=== PATIENT | male | born 1970 | race Caucasian/White ===

== ENCOUNTER 2021-11-11 06:35 | Emergency (ER) | payer MEDICARE ==
[2021-11-11] MEDS ORDERED: LORazepam 1 MG TAB PO STA ×2 (07:02→08:31)
[2021-11-11 08:22] LABS: Amphetamine Screen,Urine Not Detected (NotDetected); Barbiturate Screen,Urine Not Detected (NotDetected); Benzodiazepines Screen,Urine Detected (NotDetected); Cocaine Screen,Urine Not Detected (NotDetected); Methadone Screen, Urine Not Detected (NotDetected); Opiate Screen,Urine Detected (NotDetected); Oxycodone Screen, Urine Not Detected (NotDetected); Phencyclidine Screen,Urine Not Detected (NotDetected); Tricyclic Antidepressant,Urine Not Detected (NotDetected); Urn Cannabinoid Scrn Not Detected (NotDetected)
--- NOTE | 2021-11-11 08:52 | ED ---
General Adult HPI - General Chief complaint: Psychiatric Symptoms Stated complaint: Mental Health Time Seen by Provider: 11/11/21 08:09 Source: patient, RN notes reviewed, old records reviewed Mode of arrival: ambulatory Limitations: no limitations - History of Present Illness Initial comments: Patient is a 50-year-old male with past medical history remarkable for hypertension, chronic back pain, GERD, depression and anxiety presents emergency Department complaining of worsening debilitating depression and anxiety. States she has been having panic attacks at home. Is on Xanax at home. Within the last year has lost both of his pets, as well as his father for whom he was the primary caregiver. [place], [place] now regrets that as he is no longer family. CT is lack of appetite, can't sleep, feels like his depression and anxiety is worsening. Is seeking psychiatric evaluation. States he no longer feels like living but denies any suicidal ideations, attempts, plans. Denies any homicidal ideations, attempts, plans. Denies any visual or auditory hallucinations. Denies alcohol use or drug use. His no other acute complaints at this time. - Related Data Home Medications Medication Instructions Recorded Confirmed ALPRAZolam [Xanax] 0.25 mg PO BID PRN 11/11/21 11/11/21 Atorvastatin [Lipitor] 20 mg PO HS 11/11/21 11/11/21 Diltiazem HCl [Cardizem CD] 360 mg PO HS 11/11/21 11/11/21 Docusate [Colace] 100 mg PO HS PRN 11/11/21 11/11/21 Fenofibrate Nanocrystallized 145 mg PO HS 11/11/21 11/11/21 [Tricor] HYDROcodone/APAP 10-325MG [[place] 1 tab PO DAILY PRN 11/11/21 11/11/21 10-325] Methocarbamol [Robaxin-750] 750 mg PO DAILY PRN 11/11/21 11/11/21 Olmesartan Medoxomil 20 mg PO HS 11/11/21 11/11/21 Omeprazole 20 mg PO HS 11/11/21 11/11/21 Tadalafil [Cialis] 5 mg PO HS 11/11/21 11/11/21 Venlafaxine HCl [Effexor XR] 150 mg PO HS 11/11/21 11/11/21 Zolpidem [Ambien] 5 mg PO HS PRN 11/11/21 11/11/21 buPROPion XL [Wellbutrin XL] 150 mg PO HS 11/11/21 11/11/21 Allergies Allergy/AdvReac Type Severity Reaction Status Date / Time doxycycline Allergy Rash/Hives Verified 11/11/21 09:53 metronidazole [From Flagyl] Allergy Rash/Hives Verified 11/11/21 09:53 sulfamethoxazole Allergy Rash/Hives Verified 11/11/21 09:53 [From Bactrim] tetracycline Allergy Rash/Hives Verified 11/11/21 09:53 trimethoprim [From Bactrim] Allergy Rash/Hives Verified 11/11/21 09:53 Review of Systems ROS Statement: Those systems with pertinent positive or pertinent negative responses have been documented in the HPI. Review of Systems: CONST: Denies fever EYES: Denies blurry vision ENT: Denies nasal congestion C/V: Denies Chest pain RESP: Denies shortness of breath GI: Denies abdominal pain : Denies dysuria SKIN: Denies rash. MSK: Denies joint pain. NEURO: Denies headache PSYCH: Denies suicidal and homicidal ideations/plans/attempts. Denies visual or auditory hallucinations. He endorses severe anxiety and depression ROS Other: All systems not noted in ROS Statement are negative. Past Medical History Past Medical History: GERD/Reflux, Hyperlipidemia, Hypertension Additional Past Medical History / Comment(s): chronic back pain History of Any Multi-Drug Resistant Organisms: None Reported Additional Past Surgical History / Comment(s): sternal repain, varicose vein sx, R rotator Past Psychological History: Anxiety, Depression Smoking Status: Current some day smoker Past Alcohol Use History: Occasional Past Drug Use History: None Reported General Exam - General Exam Comments Initial Comments: General: Appears extremely anxious HEAD: Normal with no signs of head trauma. EYES: PERRLA, EOMI, conjunctiva normal, no discharge. Pupils are 3 mm and equal bilaterally ENT: Hearing grossly intact, normal oropharynx. RESPIRATORY: Clear breath sounds bilaterally. No wheezes, rales, or rhonchi. C/V: Regular rate and rhythm. S1 and S2 auscultated, no edema, peripheral pulses 2+ and intact throughout ABD: Abd is soft, nontender, nondistended EXT: Normal range of motion, no obvious deformity SKIN: No rashes or lesions observed on exposed skin. NEURO: Alert and oriented x 4. Cranial nerves II-XII intact. No focal sensory or strength deficits. Limitations: no limitations Course Vital Signs 11/11/21 11/11/21 06:50 10:59 Temperature 98 F 98.1 F Pulse Rate 107 H 85 Respiratory 18 14 Rate Blood Pressure 134/86 132/92 O2 Sat by Pulse 98 98 Oximetry Medical Decision Making - Medical Decision Making Based on the patient's presentation and physical exam, I do believe he requires psychiatric evaluation. BAT is 0. UDS is pending at this time. Do not believe that he has further imaging and laboratory studies at this time. He will be given Ativan for his anxiety. Patient was in agreement this plan.UDS is positive for opiates as well as benzodiazepines. At this time patient is medically cleared for evaluation by EPS. There were contacted for psychiatric evaluation. Disposition is pending psychiatric evaluation. Psych evaluated the patient. He is going to sign himself in for inpatient psychiatry. Patient was therefore admitted in stable condition to inpatient psych. - Lab Data Lab Results 11/11/21 Range/Units 07:49 Urine Opiates Screen Detected H (NotDetected) Ur Oxycodone Screen Not Detected (NotDetected) Urine Methadone Screen Not Detected (NotDetected) Ur Propoxyphene Screen Not Detected (NotDetected) Ur Barbiturates Screen Not Detected (NotDetected) U Tricyclic Antidepress Not Detected (NotDetected) Ur Phencyclidine Scrn Not Detected (NotDetected) Ur Amphetamines Screen Not Detected (NotDetected) U Methamphetamines Scrn Not Detected (NotDetected) U Benzodiazepines Scrn Detected H (NotDetected) Urine Cocaine Screen Not Detected (NotDetected) U Marijuana (THC) Screen Not Detected (NotDetected) Disposition Clinical Impression: Acute anxiety, Encounter for psychiatric assessment, Depression Disposition: ADMITTED IP TO THIS HOSP Condition: Stable Referrals: Nonstaff,Physician [Primary Care Provider] - 1-2 days
[2021-11-11 14:08] VITALS: BP 145/98; PULSE 109; RESP 20; TEMP 98
--- NOTE | 2021-11-11 22:47 | P.EN ---
It was recommended that patient be admitted to [facility]. ER staff was informed that he cannot leave AMA. However, family came to the unit, and patient left with family. Although patient would benefit from psychiatric hospitalization, at this time, he does not require a petition with pickup order as he is not suicidal, homicidal, floridly psychotic, or floridly manic, and he is with family.
== END 2021-11-11 15:10 | disposition other institution (70) ==
LOC: EC 06:35 → 3MHU 15:06 → UNDOADMIN 15:06
DX: Z04.6 Encounter for general psychiatric examination, requested by authority (principal); F99 Mental disorder, not otherwise specified; I10 Essential (primary) hypertension; K21.9 Gastro-esophageal reflux disease without esophagitis; Z79.1 Long term (current) use of non-steroidal anti-inflammatories (NSAID); Z20.822 Contact with and (suspected) exposure to COVID-19; F17.200 Nicotine dependence, unspecified, uncomplicated; Z88.1 Allergy status to other antibiotic agents; Z88.2 Allergy status to sulfonamides
CPT/HCPCS: 80306; 82075; 87635; 99284